=== PATIENT | female | born 1965 | race Caucasian/White ===

== ENCOUNTER 2020-02-10 14:24 | Outpatient (CLI) | payer OTHER, SELFPAY ==
--- NOTE | ~2020-02-10 | MM_ITS ---
EXAMINATION: MM screening [facility] BI w cintia HISTORY: Screening mammogram TECHNIQUE: Craniocaudal and mediolateral oblique 3-D tomosynthesis images were obtained and synthetic 2-D images were generated. CAD analysis was submitted and interpreted. COMPARISON: 09/21/2015, 08/19/2013, 04/18/2012 BREAST PARENCHYMAL COMPOSITION: The breasts are extremely dense, which lowers the sensitivity of mamm ography. FINDINGS: There is no evidence of suspicious mass, calcification, or architectural distortion to sugg est malignancy in either breast. There has been no suspicious interval change. IMPRESSION: 1. No mammographic evidence of malignancy. 2. Recommend routine screening mammography in one year. BI-RADS Category 1: Negative Reviewed, dictated and finalized at location A. O TECHNICIAN
== END 2020-02-10 14:25 | disposition home or self-care (01) ==
LOC: ANHIMG 14:26
PROVIDERS: Visit Provider Obstetrics & Gynecology
DX: Z12.31 Encounter for screening mammogram for malignant neoplasm of breast (principal)
CPT/HCPCS: 77063; 77067

== ENCOUNTER → 2020-02-15 13:49 | Outpatient (CLI) | payer OTHER, SELFPAY ==
--- NOTE | ~2020-02-15 | XR_ITS ---
EXAMINATION: XR chest 2V 02/15/2020 14:02 INDICATION: Preop PROCEDURE: 2 view chest COMPARISON: 02/23/2016 FINDINGS: The lungs are clear. The cardiomediastinal silhouette is within normal limits. There are no pleural effusions. There is no pneumothorax suspected. IMPRESSION: 1: NO ACUTE CARDIOPULMONARY DISEASE. Reviewed, dictated and finalized at location A. ICE NOW DEVELOPER
== END ==
PROVIDERS: PCP Nurse Practitioner Family; Visit Provider Nurse Practitioner Family
DX: Z01.818 Encounter for other preprocedural examination (principal)
CPT/HCPCS: 71046

== ENCOUNTER 2021-08-08 21:53 | Emergency (ER) | payer BC, SELFPAY ==
[2021-08-08 21:55] VITALS: BP 125/74; PULSE 79; RESP 18; TEMP 36.5; O2SAT 100
[2021-08-08] MEDS: TETANUS,DIPHTHERIA,AC PERTUSSIS ADULT (0.5 ML) BOOSTRIX IM (22:35)
[2021-08-09 01:00] VITALS: BP 126/86; PULSE 74; RESP 16; O2SAT 97
--- NOTE | 2021-08-09 06:35 | ED.ANIMALBIT ---
HPI - Animal Bite General Chief Complaint: Animal Bite Stated Complaint: dog bite Time Seen by Provider: 08/08/21 22:11 History of Present Illness HPI narrative: 55-year-old female presenting with dog bite to the face, dog is vaccinated, she has several cuts on the left side of her face and her lip. Related Data Allergies Allergy/AdvReac Type Severity Reaction Status Date / Time Penicillins Allergy Unknown Unknown Verified 08/08/21 22:34 Review of Systems Review of Systems: CONST: No fever. HEENT: bite wounds to face C/V: No chest injury RESP: No difficulty breathing GI: No abdominal injury : No dysuria. M/S: No joint pain. SKIN: No rash. NEURO: [No headache or focal numbness or weakness] PSYCH: [No depression] PMFSH Past Medical History Medical History Vaginal delivery x3 Surgical History Surgical History History of bilateral salpingo-oophorectomy 2018 History of breast augmentation 03/2020 History of cholecystectomy History of cryosurgery cervix History of endometrial ablation History of hysterectomy 2018 S/P laparoscopic procedure [place] teeth extracted Family History Family History Father Family history of gout Sibling Hypertension Family history of malignant neoplasm of breast in first degree relative Other Diabetes mellitus Social History Social History Smoking status: Never smoker Alcohol intake: current Drinks per week: 5 Substance use: never Exam Narrative: EXAMINATION OF ORGAN SYSTEMS/BODY AREAS: Constitutional: Vital signs per nursing GENERAL:[No acute distress, non-toxic appearing.] HEAD: Normal with no signs of head trauma. EYES: EOMI, conjunctiva normal ENT: Linear lac left cheek 3cm superficial, 1cm lac above L lip, 0.5 cm lac thru L lip, 0.5cm lac L lip corner LUNGS: Nonlabored breathing. HEART: [Regular rate and rhythm] EXT: Normal range of motion SKIN: per above NEURO: [Alert and oriented x 3. No gross focal sensory or strength deficits.] PSYCH: Normal affect Course Course Emergency Course: 55-year-old female presenting with immunized dog bite to face, vital stable, exam shows multiple lacerations to the face, case discussed with plastic surgery given my concern for the lacerations across vermilion border, per [facility] product consultant plastic surgeon Dr. Ramon I can go ahead and clean the wound out very well, and close it as well approximated as I can, or leave it open, and he will see her in the clinic in 1 or 2 days and potentially fix it if needed. Shared decision-making with patient, she would like and wants to be closed here today, see procedure note for nerve block and total of 6 sutures placed for the 4 lacs with good approximation, patient given followup and Augmentin/tdap and return if worse. Vital Signs Vital signs: Vital Signs Temperature 97.7 F 08/08/21 21:55 Pulse Rate 79 08/08/21 21:55 Respiratory Rate 18 08/08/21 21:55 Blood Pressure 125/74 08/08/21 21:55 Pulse Oximetry 100 08/08/21 21:55 Temperature 97.7 F 08/08/21 21:55 Pulse Rate 74 08/09/21 01:00 Respiratory Rate 16 08/09/21 01:00 Blood Pressure 126/86 08/09/21 01:00 Pulse Oximetry 97 08/09/21 01:00 Procedures Laceration Laceration 1: Date: 08/08/21 Time: 23:41 Site: face Side (If applicable): left Size (cm): 0.5 Description: linear, clean and involves chance border Depth: simple, single layer Pre-repair: irrigated, irrigated extensively, minor debridement and deep structures intact ====== Skin Level ====== Skin layer closed with: nylon Size (cm): 6-0 Number of sutures: 6 Technique: simple, interrupted ====== Subcutaneous Layer ====== ====== Muscle Layer ====
== END 2021-08-09 01:03 | disposition home or self-care (01) ==
PROVIDERS: Emergency Provider Emergency Medicine; PCP Nurse Practitioner Family
DX: S01.551A Open bite of lip, initial encounter (principal); Z23 Encounter for immunization; W54.0XXA Bitten by dog, initial encounter
CPT/HCPCS: 12011; 90471; 90715; 99283; A9270

== ENCOUNTER 2022-05-11 11:19 | Outpatient (CLI) | payer BC, SELFPAY ==
--- NOTE | ~2022-05-11 | MM_ITS ---
EXAMINATION: MM scrn anthony implant BI w cintia HISTORY: Screening mammogram TECHNIQUE: Craniocaudal and mediolateral oblique 3-D tomosynthesis images with implant displacement a nd synthetic 2-D images were generated. Craniocaudal and mediolateral oblique views of the breasts wi thout implant displacement were obtained using full field digital mammography. CAD analysis was submi tted and interpreted. COMPARISON: 02/10/2020, 09/21/2015 bilateral screening mammogram examinations BREAST PARENCHYMAL COMPOSITION: The breasts are extremely dense, which lowers the sensitivity of mamm ography. FINDINGS: Status post bilateral augmentation mammoplasty since 02/10/2020. There is no evidence of rolon spicious mass, calcification, or architectural distortion to suggest malignancy in either breast. The re has been no suspicious interval change. IMPRESSION: 1. No mammographic evidence of malignancy. 2. Recommend routine screening mammography in one year. BI-RADS Category 1: Negative Reviewed, dictated and finalized at location A. MATION CONTROL TECHNICIAN
== END 2022-05-11 11:20 | disposition home or self-care (01) ==
LOC: ANHIMG 11:22
PROVIDERS: PCP Nurse Practitioner Family; Visit Provider Nurse Practitioner
DX: Z12.31 Encounter for screening mammogram for malignant neoplasm of breast (principal)
CPT/HCPCS: 77063; 77067

== ENCOUNTER 2024-06-09 14:58 | Outpatient (CLI) | payer OTHER, SELFPAY ==
--- NOTE | ~2024-06-09 | MR_ITS ---
MR breast BI wo/w con 06/09/2024 16:48 CDT INDICATION: Dense breasts. TECHNIQUE: MRI of the breasts perform using standard protocol pre-and post IV contrast with the follo wing sequences: Axial T2 STIR, axial T1, axial vibrant T1 with fat suppression precontrast and multip hasic postcontrast. COMPARISON: Comparison to multiple prior studies sequentially, with oldest reviewed study dated 04/18. FINDINGS: Dense: The breasts contain moderate parenchymal content. There are no abnormalities on the precontrast sequences. There is minimal, mild, moderate, marked background parenchymal enhancement. No enhancing lesions following contrast administration. No areas of enhancement meeting threshold cr iteria on CAD analysis. No evidence of signal abnormalities in the axillary or internal mammary node distributions. LEFT BREAST: No signal abnormalities on precontrast sequences. There is minimal, mild, moderate, mar ked background parenchymal enhancement. No enhancing lesions following contrast administration. No areas of enhancement meeting threshold criteria on CAD analysis. No evidence of signal abnormaliti es in the axillary or internal mammary node distributions.] IMPRESSION: 1: Right breast: Negative. No evidence of malignancy. BI-RADS category 1. Recommend annual mammo graphy follow-up. 2: Left breast: Negative. No evidence of malignancy. BI-RADS category 1. Recommend annual mammogr aphy follow-up. Follow-up MRI may be useful for supplementing mammographic evaluation as clinically indicated. MR breast BI wo/w con 06/10/2024 14:23 CDT INDICATION: Dense breasts. TECHNIQUE: MRI of the breasts perform using standard protocol pre-and post IV contrast with the follo wing sequences: Axial T2 STIR, axial T1, axial vibrant T1 with fat suppression precontrast and multip hasic postcontrast. 14 cc MultiHance administered intravenously. COMPARISON: Comparison to multiple prior studies sequentially, with oldest reviewed study dated 09/2008. FINDINGS: The breasts are heterogeneously dense, which may obscure small masses. Right breast: There are no abnormalities on the precontrast sequences. There is minimal background pa renchymal enhancement. No enhancing lesions following contrast administration. No areas of enhancem ent meeting threshold criteria on CAD analysis. No evidence of signal abnormalities in the axillary or internal mammary node distributions. LEFT BREAST: No signal abnormalities on precontrast sequences. There is minimal background parenchym al enhancement. No enhancing lesions following contrast administration. No areas of enhancement me eting threshold criteria on CAD analysis. No evidence of signal abnormalities in the axillary or in ternal mammary node distributions. There is subcapsular line sign in the left breast implant, consist ent with intracapsular rupture. IMPRESSION: 1: Right breast: Negative. No evidence of malignancy. BI-RADS category 1. Recommend annual mammo graphy follow-up. 2: Left breast: Negative. No evidence of malignancy. Intracapsular left breast implant rupture. BI- RADS category 2. Recommend annual mammography follow-up. Follow-up MRI may be useful for supplementing mammographic evaluation as clinically indicated. Reviewed, dictated and finalized at location B. IMPRESSION: 1: Right breast: Negative. No evidence of malignancy. BI-RADS category 1. Recommend annual mammography follow-up. 2: Left breast: Negative. No evidence of malignancy. BI-RADS category 1. Re commend annual mammography follow-up. Follow-up MRI may be useful for supplementing mammographic evaluation as clinic ally indicated. MR breast BI wo/w con 06/10/2024 14:23 CDT INDICATION: Dense breasts. TECHNIQUE: MRI of the breasts perform using standard protocol pre-and post IV c ontrast with the following sequences: Axial T2 STIR, axial T1, axial vibrant T1 with fat suppression precontrast and multiphasic postcontrast. 14 cc MultiHanc e administered intravenously. COMPARISON: Comparison to multiple prior studies sequentially, with oldest [facility] study dated 01/28/2009. FINDINGS: The breasts are heterogeneously dense, which may obscure small masses . Right breast: There are no abnormalities on the precontrast sequences. There is minimal background parenchymal enhancement. No enhancing lesions following co ntrast administration. No areas of enhancement meeting threshold criteria on C AD analysis. No evidence of signal abnormalities in the axillary or internal m ammary node distributions. LEFT BREAST: No signal abnormalities on precontrast sequences. There is minima l background parenchymal enhancement. No enhancing lesions following contrast administration. No areas of enhancement meeting threshold criteria on CAD francia lysis. No evidence of signal abnormalities in the axillary or internal mammar y node distributions. There is subcapsular line sign in the left breast implant , consistent with intracapsular rupture. IMPRESSION: 1: Right breast: Negative. No evidence of malignancy. BI-RADS category 1. Recommend annual mammography follow-up. 2: Left breast: Negative. No evidence of malignancy. Intracapsular left breas t implant rupture. BI-RADS category 2. Recommend annual mammography follow-up. Follow-up MRI may be useful for supplementing mammographic evaluation as clinic ally indicated.
== END 2024-06-09 14:59 | disposition home or self-care (01) ==
PROVIDERS: PCP Nurse Practitioner Family; Visit Provider Obstetrics & Gynecology Gynecology
DX: R92.343 Mammographic extreme density, bilateral breasts (principal); Z98.82 Breast implant status
CPT/HCPCS: 77049; A9579; C8908